=== PATIENT | female | born 1995 | race Caucasian/White ===

== ENCOUNTER 2018-11-18 09:05 | Emergency (ER) | payer BC ==
[~2018-11-18] VITALS: Ht 162.6 cm; Wt 61.2 kg
[~2018-11-18 09:05] MED LIST: BIRTH CONTROL
[2018-11-18 09:18] VITALS: BP_SYST 112
[2018-11-18 10:36] VITALS: BP_SYST 112
== END 2018-11-18 10:35 | disposition home or self-care (01) ==
LOC: SED 09:05
DX: H61.23 Impacted cerumen, bilateral (principal); Z88.2 Allergy status to sulfonamides
CPT/HCPCS: 99282